=== PATIENT | male | born 1960 | race African-American/Black ===

== ENCOUNTER 2022-12-30 08:40 | Inpatient (IN) | payer MEDICARE, MEDICAID ==
[~2022-12-30] VITALS: Ht 182.9 cm; Wt 87.1 kg
[2022-12-30] VITALS (31 sets, daily range): BP systolic 116–150; BP diastolic 63–99
[~2022-12-30 08:40] MED LIST: ACET-2708 PO; ASCO500C15 PO; CHOL200016; CRAN450T10 PO; DOCU-150 PO; FERR325T6 PO; LEVE500T19 PO; LEVO25TA2 PO; MOM MT; MOM PO; MULT-379 MT; MV-M1TAB19 PO; OLAN5TAB3 PO; PHEN100C4 PO; TOPUD PO; ZINC220C6
[2022-12-30] MEDS ORDERED: LEVETIRACETAM 1000MG PREMIX 100 ML IV ONE (09:00)
[2022-12-30 09:19] LABS: BASOPHILS % 0.3 % (0.0-2.0); EOSINOPHILS % 0.9 % (0.0-5.0); HEMATOCRIT. 42.8 % (42.0-52.0); HEMOGLOBIN. 13.6 g/dL (14.0-18.0); MEAN CORPUSCULAR HEMOGLOBIN 31.2 pg (28.0-32.0); MONOCYTES % 5.8 % (2.0-8.0); PLATELET 274 x1000/uL (130-400); RED BLOOD CELL COUNT 4.37 mill/uL (4.7-6.1); RED CELL DISTRIBUTION WIDTH 14.6 % (11.6-14.6)
[2022-12-30 09:29] LABS: CHLORIDE 103 mEq/L (98-107)
[2022-12-30 09:37] LABS: ETHANOL BLOOD < 10 mg/dL
[2022-12-30 09:53] LABS: CLARITY URINE CLEAR (CLEAR); COLOR URINE YELLOW (YELLOW); KETONES URINE TRACE (NEGATIVE); LEUKOCYTE ESTERASE URINE 1+ (NEGATIVE); NITRITE URINE NEGATIVE (NEGATIVE); OCCULT BLOOD URINE 1+ (NEGATIVE); PROTEIN URINE 2+ (NEGATIVE); SPECIFIC GRAVITY URINE 1.015 (1.005-1.030); UROBILINOGEN URINE 0.2 E.U./dL (0.2-1.0)
[2022-12-30 10:21] LABS: BG BASE EXCESS -7.8 mmol/L (-2.0-2.0); BG CARBOXYHEMOGLOBIN 1.1 % (0.5-1.5); BG DEOXYHEMOGLOBIN 0.3 % (0.0-5.0); BG METHEMOGLOBIN 0.2 % (0.0-1.5); BG OXYGEN SATURATION 99.7 % (92.0-98.5); BG OXYHEMOGLOBIN 98.4 % (94.0-97.0); BG PCO2 56.3 mmHg (35.0-45.0); BG PO2 293.3 mmHg (75.0-100.0); BG SAMPLE SITE RIGHT RADIAL; BG TOTAL HEMOGLOBIN 14.5 g/dL (12.0-18.0); BG VENT MODE MASK - NRB
[2022-12-30] MEDS ORDERED: SUCCINYLCHOLINE CHLORIDE 200MG/10ML IV ONE ×2 (10:30→12:00)
[2022-12-30] MEDS ORDERED: ETOMIDATE 2MG/ML 10ML VIAL IV ONE ×2 (10:30→12:00)
[2022-12-30 10:47] LABS: *AMPHETAMINES SCREEN URINE NEGATIVE (NEGATIVE); *BARBITURATES SCREEN URINE NEGATIVE (NEGATIVE); *BENZODIAZEPINES SCREEN URINE PRESUMTIVE POSITIVE (NEGATIVE); *COCAINE SCREEN URINE NEGATIVE (NEGATIVE); CANNABINOID URINE SCREEN NEGATIVE (NEGATIVE); METHADONE URINE SCREEN NEGATIVE (NEGATIVE); OPIATES URINE SCREEN NEGATIVE (NEGATIVE); PHENCYCLIDINE URINE SCREEN NEGATIVE (NEGATIVE)
[2022-12-30] MEDS ORDERED: PROPOFOL 10MG/ML 100ML 100 ML IV ONE (11:00)
[2022-12-30] MEDS ORDERED: IPRATROPIUM/ALBUTEROL 0.5-3(2.5)MG/3ML NEB HHN PRN (11:00)
[2022-12-30] MEDS ORDERED: DIPHENHYDRAMINE 50MG/ML VIAL IV PRN (11:00)
[2022-12-30] MEDS ORDERED: LEVETIRACETAM 500 MG in SODIUM CHLORIDE 0.9% 100 ML IV SCH (11:00)
[2022-12-30] MEDS ORDERED: ONDANSETRON HCL 4MG/2ML INJ IV PRN (11:00)
[2022-12-30] MEDS ORDERED: LORAZEPAM 2MG/ML CPJ IV PRN (11:00)
[2022-12-30] MEDS ORDERED: CLONIDINE 0.1MG TABLET PO PRN (11:00)
[2022-12-30 11:49] LABS: BG BASE EXCESS -7.3 mmol/L (-2.0-2.0); BG CARBOXYHEMOGLOBIN 0.6 % (0.5-1.5); BG DEOXYHEMOGLOBIN 0.6 % (0.0-5.0); BG HCO3 ACT 20.9 mmol/L (22.0-26.0); BG METHEMOGLOBIN 0.6 % (0.0-1.5); BG OXYGEN SATURATION 99.4 % (92.0-98.5); BG OXYHEMOGLOBIN 98.2 % (94.0-97.0); BG PH 7.214 (7.350-7.450); BG PO2 224.1 mmHg (75.0-100.0); BG SAMPLE SITE RIGHT RADIAL; BG TOTAL HEMOGLOBIN 14.3 g/dL (12.0-18.0); BG VENT MODE VENT - AC
[2022-12-30] MEDS ORDERED: LORAZEPAM 2MG/ML CPJ IV ONE (12:00)
[2022-12-30] MEDS ORDERED: AZITHROMYCIN 500MG/250ML 250 ML IV ONE (12:15)
[2022-12-30] MEDS ORDERED: CEFTRIAXONE 1GM PREMIX 50 ML IV ONE (12:15)
[2022-12-30] MEDS ORDERED: CLON0.1T PO (14:45)
[2022-12-30] MEDS ORDERED: PHEN100C4 PO (14:45)
[2022-12-30] MEDS ORDERED: FAMO20TA8 PO (14:45)
[2022-12-30] MEDS ORDERED: TRAZ-251 PO (14:45)
[2022-12-30] MEDS ORDERED: LEVE500T98 MT (14:45)
[2022-12-30] MEDS ORDERED: LEVO25TA7 PO (14:45)
[2022-12-30] MEDS ORDERED: LACT10SO6 MT (14:45)
[2022-12-30] MEDS ORDERED: LACO100T2 PO (14:45)
[2022-12-30] MEDS ORDERED: BISA10SU62 RC (14:45)
[2022-12-30] MEDS ORDERED: CLON0.252 MT (14:45)
[2022-12-30] MEDS ORDERED: OLAN10TA72 PO (14:46)
[2022-12-30] MEDS: IPRATROPIUM/ALBUTEROL 0.5-3(2.5)MG/3ML NEB HHN SCH ×2 (14:54→20:42)
[2022-12-30] MEDS ORDERED: NON FORMULARY PATIENT HOME MED XX SCH (16:00)
[2022-12-30] MEDS ORDERED: PROPOFOL 10MG/ML 100ML 100 ML IV PRN (16:00)
[2022-12-30 17:15] LABS: BG CARBOXYHEMOGLOBIN 0.8 % (0.5-1.5); BG DEOXYHEMOGLOBIN 3.1 % (0.0-5.0); BG HCO3 ACT 23.9 mmol/L (22.0-26.0); BG METHEMOGLOBIN 0.6 % (0.0-1.5); BG OXYGEN SATURATION 96.9 % (92.0-98.5); BG OXYHEMOGLOBIN 95.5 % (94.0-97.0); BG PCO2 29.9 mmHg (35.0-45.0); BG PO2 73.8 mmHg (75.0-100.0); BG SAMPLE SITE RIGHT RADIAL; BG TOTAL HEMOGLOBIN 14.5 g/dL (12.0-18.0); BG VENT MODE VENT - AC
[2022-12-30] MEDS: LEVETIRACETAM 500MG PREMIX 100 ML IV SCH (20:37)
[2022-12-30] MEDS: PROPOFOL 10MG/ML 100ML 100 ML IV PRN (22:51)
[2022-12-31] VITALS (78 sets, daily range): BP systolic 113–163; BP diastolic 54–94
[2022-12-31] MEDS: IPRATROPIUM/ALBUTEROL 0.5-3(2.5)MG/3ML NEB HHN SCH ×4 (02:01→21:06)
[2022-12-31 06:15] LABS: BASOPHILS % 0.2 % (0.0-2.0); HEMATOCRIT. 38.1 % (42.0-52.0); HEMOGLOBIN. 12.7 g/dL (14.0-18.0); LYMPHOCYTES % 9.8 % (20.0-50.0); MEAN CORPUSCULAR HEMOGLOBIN 30.8 pg (28.0-32.0); MEAN CORPUSCULAR VOLUME 92.6 fL (80.0-94.0); MEAN PLATELET VOLUME 7.8 fl (7.4-10.4); MONOCYTES % 6.8 % (2.0-8.0); NEUTROPHILS % 83.2 % (40.0-76.0); PLATELET 219 x1000/uL (130-400); RED BLOOD CELL COUNT 4.12 mill/uL (4.7-6.1); RED CELL DISTRIBUTION WIDTH 14.4 % (11.6-14.6)
[2022-12-31 06:24] LABS: CHLORIDE 105 mEq/L (98-107)
[2022-12-31] MEDS: PROPOFOL 10MG/ML 100ML 100 ML IV PRN (06:57)
[2022-12-31] MEDS: LEVETIRACETAM 500MG PREMIX 100 ML IV SCH (08:04)
[2022-12-31] MEDS: PANTOPRAZOLE SODIUM 40 MG/VIAL IV SCH (08:04)
[2022-12-31 08:24] LABS: BG BASE EXCESS 0.8 mmol/L (-2.0-2.0); BG CARBOXYHEMOGLOBIN 0.8 % (0.5-1.5); BG DEOXYHEMOGLOBIN 1.6 % (0.0-5.0); BG FRACTION INSPIRED OXYGEN 40; BG HCO3 ACT 23.8 mmol/L (22.0-26.0); BG METHEMOGLOBIN 0.5 % (0.0-1.5); BG OXYGEN SATURATION 98.4 % (92.0-98.5); BG OXYHEMOGLOBIN 97.1 % (94.0-97.0); BG PCO2 33.3 mmHg (35.0-45.0); BG PH 7.472 (7.350-7.450); BG PO2 102.9 mmHg (75.0-100.0); BG SAMPLE SITE RIGHT RADIAL; BG TOTAL HEMOGLOBIN 13.7 g/dL (12.0-18.0); BG VENT MODE VENT - AC
[2022-12-31] MEDS ORDERED: LEVETIRACETAM 1,000 MG in SODIUM CHLORIDE 0.9% 100 ML IV SCH (12:30)
[2022-12-31] MEDS: PHENYTOIN 100 MG/4 ML UDC PO SCH (12:46)
[2022-12-31] MEDS: OLANZAPINE 5MG TABLET ODT PO SCH (12:47)
[2022-12-31] MEDS: LEVETIRACETAM 1,000 MG in SODIUM CHLORIDE 0.9% 100 ML IV SCH (21:57)
[2023-01-01] VITALS (18 sets, daily range): BP systolic 94–167; BP diastolic 60–103
[2023-01-01] MEDS: IPRATROPIUM/ALBUTEROL 0.5-3(2.5)MG/3ML NEB HHN SCH ×2 (00:53→09:12)
[2023-01-01 05:57] LABS: BASOPHILS % 0.3 % (0.0-2.0); EOSINOPHILS % 0.1 % (0.0-5.0); HEMOGLOBIN. 14.2 g/dL (14.0-18.0); LYMPHOCYTES % 14.5 % (20.0-50.0); MEAN CORPUSCULAR HEMOGLOBIN 30.9 pg (28.0-32.0); MEAN CORPUSCULAR VOLUME 95.7 fL (80.0-94.0); MONOCYTES % 8.9 % (2.0-8.0); NEUTROPHILS % 76.2 % (40.0-76.0); RED CELL DISTRIBUTION WIDTH 14.3 % (11.6-14.6)
[2023-01-01 06:07] LABS: CHLORIDE 108 mEq/L (98-107)
[2023-01-01 07:37] LABS: PLATELET 156 x1000/uL (130-400)
[2023-01-01] MEDS: LEVETIRACETAM 1,000 MG in SODIUM CHLORIDE 0.9% 100 ML IV SCH ×2 (10:26→21:26)
[2023-01-01] MEDS: PANTOPRAZOLE SODIUM 40 MG/VIAL IV SCH (10:26)
[2023-01-01] MEDS: OLANZAPINE 5MG TABLET ODT PO SCH ×2 (10:27→20:21)
[2023-01-01] MEDS: PHENYTOIN 100 MG/4 ML UDC PO SCH (10:37)
[2023-01-01] MEDS ORDERED: HALOPERIDOL LACTATE 5MG/ML VIAL IM PRN (14:15)
[2023-01-01] MEDS: CEFTRIAXONE 1,000 MG in DEXTROSE 5% WATER 50 ML IV SCH (15:14)
[2023-01-01] MEDS: DEXT 5%/0.9% NACL 1,000 ML IV SCH (19:48)
[2023-01-02] VITALS (13 sets, daily range): BP systolic 119–154; BP diastolic 66–89
[2023-01-02 05:14] LABS: BASOPHILS % 0.5 % (0.0-2.0); EOSINOPHILS % 1.1 % (0.0-5.0); HEMOGLOBIN. 13.2 g/dL (14.0-18.0); LYMPHOCYTES % 16.8 % (20.0-50.0); MEAN CORPUSCULAR HEMOGLOBIN 31.2 pg (28.0-32.0); MEAN CORPUSCULAR VOLUME 94.9 fL (80.0-94.0); MONOCYTES % 9.1 % (2.0-8.0); NEUTROPHILS % 72.5 % (40.0-76.0); RED BLOOD CELL COUNT 4.22 mill/uL (4.7-6.1)
[2023-01-02 05:25] LABS: CHLORIDE 107 mEq/L (98-107)
[2023-01-02 06:59] LABS: PLATELET 189 x1000/uL (130-400)
[2023-01-02] MEDS: PANTOPRAZOLE SODIUM 40 MG/VIAL IV SCH (08:05)
[2023-01-02] MEDS: PHENYTOIN 100 MG/4 ML UDC PO SCH (08:06)
[2023-01-02] MEDS: OLANZAPINE 5MG TABLET ODT PO SCH ×2 (08:06→21:00)
[2023-01-02] MEDS: LEVETIRACETAM 1,000 MG in SODIUM CHLORIDE 0.9% 100 ML IV SCH (08:45)
[2023-01-02] MEDS: CEFTRIAXONE 1,000 MG in DEXTROSE 5% WATER 50 ML IV SCH (16:40)
[2023-01-02] MEDS: DEXT 5%/0.9% NACL 1,000 ML IV SCH (16:40)
[2023-01-02] MEDS ORDERED: ACETAMINOPHEN 325MG TABLET PO PRN (16:45)
[2023-01-02] MEDS: LEVETIRACETAM 500MG TABLET PO SCH (21:00)
[2023-01-03] VITALS: BP 110/58
[2023-01-03 04:00] VITALS: BP 140/69
[2023-01-03 08:00] VITALS: BP 127/70
[2023-01-03] MEDS: PANTOPRAZOLE SODIUM 40 MG/VIAL IV SCH (09:19)
[2023-01-03] MEDS: PHENYTOIN 100 MG/4 ML UDC PO SCH (09:19)
[2023-01-03] MEDS: OLANZAPINE 5MG TABLET ODT PO SCH (09:20)
[2023-01-03] MEDS: LEVETIRACETAM 500MG TABLET PO SCH (09:20)
[2023-01-03] MEDS: DEXT 5%/0.9% NACL 1,000 ML IV SCH (11:42)
[2023-01-03 12:00] VITALS: BP 128/81
[2023-01-03] MEDS ORDERED: KEPP500 PO (12:30)
[2023-01-03] MEDS: CEFTRIAXONE 1,000 MG in DEXTROSE 5% WATER 50 ML IV SCH (13:20)
[2023-01-03 15:21] VITALS: BP 128/81
[2023-01-03 16:00] VITALS: BP 127/71
[2023-01-04] MEDS ORDERED: FAMOTIDINE 20MG TABLET PO SCH (09:00)
== END 2023-01-03 19:12 | DRG 871 ==
LOC: ER 08:40 → MICUSO 10:54 → EDBEDREQ 10:56 → EDBEDREQSVC 10:56 → EDBEDREQTM 10:56 → 8WST 01-02 12:01
PROVIDERS: ADMIT Family Medicine Adult Medicine; ATTEND Family Medicine Adult Medicine
PROC: 5A1935Z Respiratory Ventilation, Less than 24 Consecutive Hours (ICD-10-PCS; principal; 2022-12-30)
PROC: 0BH17EZ Insertion of Endotracheal Airway into Trachea, Via Natural or Artificial Opening (ICD-10-PCS; 2022-12-30)
PROC: 02HV33Z Insertion of Infusion Device into Superior Vena Cava, Percutaneous Approach (ICD-10-PCS; 2022-12-30)
PROC: B548ZZA Ultrasonography of Superior Vena Cava, Guidance (ICD-10-PCS; 2022-12-30)
PROC: 4A00X4Z Measurement of Central Nervous Electrical Activity, External Approach (ICD-10-PCS; 2022-12-31)
DX: A41.9 Sepsis, unspecified organism (principal); J69.0 Pneumonitis due to inhalation of food and vomit; J96.00 Acute respiratory failure, unspecified whether with hypoxia or hypercapnia; E87.29 Other acidosis; E03.9 Hypothyroidism, unspecified; F20.9 Schizophrenia, unspecified; G40.901 Epilepsy, unspecified, not intractable, with status epilepticus; G80.9 Cerebral palsy, unspecified; Z20.822 Contact with and (suspected) exposure to COVID-19; K21.9 Gastro-esophageal reflux disease without esophagitis; Z78.1 Physical restraint status
CPT/HCPCS: 31500; 36415; 36573; 36600; 71045; 80048; 80053; 80185; 80305; 80320; 81003; 82375; 82805; 84145; 84478; 85025; 87070; 87426; 92610; 93970; 94003; 94640; 95816; 97162; 99291; A6261; C1725; C9113; J0330; J0696; J1200; J1953; J2060; J2704; J3490; J7042; J7050; J7060; A4315; G0480